=== PATIENT | male | born 1965 | race Caucasian/White ===

== ENCOUNTER → 2019-04-26 11:06 | Outpatient (BNVA) | payer MEDICARE, MEDICAID, SELFPAY | PROVIDERS: Family Provider Internal Medicine; PCP Internal Medicine; Visit Provider Specialist | DX: G43.711 Chronic migraine without aura, intractable, with status migrainosus (principal) | CPT/HCPCS: 64615; J0585 ==

== ENCOUNTER → 2019-05-10 11:45 | Outpatient (BNVA) | payer MEDICARE, MEDICAID, SELFPAY | PROVIDERS: Family Provider Internal Medicine; PCP Internal Medicine; Visit Provider Nurse Practitioner | DX: F31.81 Bipolar II disorder (principal) | CPT/HCPCS: 90832; 99213 ==

== ENCOUNTER → 2019-07-26 14:21 | Outpatient (BNVA) | payer MEDICARE, MEDICAID, SELFPAY | PROVIDERS: Family Provider Internal Medicine; PCP Internal Medicine; Visit Provider Specialist | DX: G43.711 Chronic migraine without aura, intractable, with status migrainosus (principal) | CPT/HCPCS: 64615; J0585 ==

== ENCOUNTER → 2019-10-01 07:35 | Outpatient (BNVA) | payer MEDICARE, MEDICAID, SELFPAY | PROVIDERS: Family Provider Internal Medicine; PCP Internal Medicine; Visit Provider Nurse Practitioner | DX: F31.81 Bipolar II disorder (principal) | CPT/HCPCS: 99214 ==

== ENCOUNTER → 2019-11-15 15:17 | Outpatient (BNVA) | payer MEDICARE, MEDICAID, SELFPAY | PROVIDERS: Family Provider Internal Medicine; PCP Internal Medicine; Visit Provider Nurse Practitioner | DX: F31.81 Bipolar II disorder (principal) | CPT/HCPCS: 99213 ==

== ENCOUNTER → 2019-12-28 14:45 | Outpatient (BNVA) | payer MEDICARE, MEDICAID, SELFPAY | PROVIDERS: Family Provider Internal Medicine; PCP Internal Medicine; Visit Provider Nurse Practitioner | DX: F31.81 Bipolar II disorder (principal) | CPT/HCPCS: 99214 ==

== ENCOUNTER → 2020-02-08 14:57 | Outpatient (BNVA) | payer MEDICARE, MEDICAID, SELFPAY | PROVIDERS: Family Provider Internal Medicine; PCP Internal Medicine; Visit Provider Nurse Practitioner | DX: F31.81 Bipolar II disorder (principal) | CPT/HCPCS: 99214 ==

== ENCOUNTER → 2020-04-17 13:00 | Outpatient (BNVA) | payer MEDICARE, MEDICAID, SELFPAY | PROVIDERS: Family Provider Internal Medicine; PCP Internal Medicine; Visit Provider Nurse Practitioner Psychiatric/Mental Health | DX: F31.81 Bipolar II disorder (principal); Z51.81 Encounter for therapeutic drug level monitoring; Z79.899 Other long term (current) drug therapy | CPT/HCPCS: 80053; 80178; 99214 ==

== ENCOUNTER → 2020-07-07 15:14 | Outpatient (BNVA) | payer MEDICARE, MEDICAID, SELFPAY | PROVIDERS: Family Provider Internal Medicine; PCP Internal Medicine; Visit Provider Nurse Practitioner Psychiatric/Mental Health | DX: F31.81 Bipolar II disorder (principal) | CPT/HCPCS: 99213 ==

== ENCOUNTER → 2020-07-23 14:05 | Outpatient (BNVA) | payer MEDICARE, MEDICAID, SELFPAY | PROVIDERS: Family Provider Internal Medicine; PCP Internal Medicine; Visit Provider Specialist | DX: G25.0 Essential tremor (principal); G43.019 Migraine without aura, intractable, without status migrainosus; F31.81 Bipolar II disorder; R63.4 Abnormal weight loss; Z68.23 Body mass index [BMI] 23.0-23.9, adult; F17.220 Nicotine dependence, chewing tobacco, uncomplicated | CPT/HCPCS: 99214 ==

== ENCOUNTER → 2020-10-06 15:52 | Outpatient (BNVA) | payer MEDICARE, MEDICAID, SELFPAY | PROVIDERS: Family Provider Internal Medicine; PCP Internal Medicine; Visit Provider Nurse Practitioner Psychiatric/Mental Health | DX: F31.81 Bipolar II disorder (principal) | CPT/HCPCS: 99213 ==

== ENCOUNTER → 2021-01-01 12:48 | Outpatient (BNVA) | payer MEDICARE, MEDICAID, SELFPAY | PROVIDERS: Family Provider Internal Medicine; PCP Internal Medicine; Visit Provider Nurse Practitioner Psychiatric/Mental Health | DX: F31.81 Bipolar II disorder (principal) | CPT/HCPCS: 99213 ==

== ENCOUNTER → 2021-01-21 14:54 | Outpatient (BNVA) | payer MEDICARE, MEDICAID, SELFPAY | PROVIDERS: Family Provider Internal Medicine; PCP Internal Medicine; Visit Provider Specialist | DX: G25.0 Essential tremor (principal); G43.711 Chronic migraine without aura, intractable, with status migrainosus; F31.81 Bipolar II disorder; R63.4 Abnormal weight loss; Z68.25 Body mass index [BMI] 25.0-25.9, adult | CPT/HCPCS: 99214 ==

== ENCOUNTER → 2021-03-03 09:27 | Outpatient (BNVA) | payer MEDICARE, MEDICAID, SELFPAY | PROVIDERS: Family Provider Internal Medicine; PCP Internal Medicine; Visit Provider Urology | DX: N40.1 Benign prostatic hyperplasia with lower urinary tract symptoms (principal); N13.8 Other obstructive and reflux uropathy; Z12.5 Encounter for screening for malignant neoplasm of prostate | CPT/HCPCS: G0103 ==

== ENCOUNTER → 2021-04-09 15:03 | Outpatient (BNVA) | payer MEDICARE, MEDICAID, SELFPAY | PROVIDERS: Family Provider Internal Medicine; PCP Internal Medicine; Visit Provider Nurse Practitioner Psychiatric/Mental Health | DX: F31.81 Bipolar II disorder (principal) | CPT/HCPCS: 99213 ==

== ENCOUNTER → 2021-07-02 13:01 | Outpatient (BNVA) | payer MEDICARE, MEDICAID, SELFPAY | PROVIDERS: Family Provider Internal Medicine; PCP Internal Medicine; Visit Provider Urology | DX: N40.1 Benign prostatic hyperplasia with lower urinary tract symptoms (principal); N13.8 Other obstructive and reflux uropathy; N52.9 Male erectile dysfunction, unspecified | CPT/HCPCS: 81003 ==

== ENCOUNTER → 2021-07-09 14:10 | Outpatient (BNVA) | payer MEDICARE, MEDICAID, SELFPAY | PROVIDERS: Family Provider Internal Medicine; PCP Internal Medicine; Visit Provider Nurse Practitioner Psychiatric/Mental Health | DX: F31.81 Bipolar II disorder (principal); F41.9 Anxiety disorder, unspecified | CPT/HCPCS: 99213 ==

== ENCOUNTER 2022-03-04 09:24 | Outpatient (CLI) | payer MEDICARE, MEDICAID, SELFPAY | END 2022-03-04 09:25 | disposition home or self-care (01) | LOC: SLEEP 03-05 09:31 | PROVIDERS: Family Provider Internal Medicine; PCP Internal Medicine; Visit Provider Internal Medicine | DX: G47.33 Obstructive sleep apnea (adult) (pediatric) (principal) | CPT/HCPCS: G0399 ==

== ENCOUNTER → 2022-07-01 13:18 | Outpatient (BNVA) | payer MEDICARE, MEDICAID, SELFPAY | PROVIDERS: Family Provider Internal Medicine; PCP Internal Medicine; Visit Provider Urology | DX: N40.1 Benign prostatic hyperplasia with lower urinary tract symptoms (principal); N13.8 Other obstructive and reflux uropathy; N52.9 Male erectile dysfunction, unspecified; R35.89 Other polyuria | CPT/HCPCS: 51798; 99213 ==

== ENCOUNTER 2022-07-30 10:10 | Outpatient (CLI) | payer MEDICARE, MEDICAID, SELFPAY ==
[2022-07-30 10:45] LABS: Basophils # 0.1 10^3/uL (0.0-0.1); Basophils % 1.4 %; Eosinophils # 0.3 10^3/uL (0.0-0.8); Eosinophils % 3.4 %; Hematocrit 42.5 % (42.0-52.0); Lymphocytes # 1.7 10^3/uL (0.8-4.8); Lymphocytes % 23.5 %; Mean Corpuscular HGB Conc 32.9 g/dL (30.0-36.0); Mean Corpuscular Volume 88.2 fl (80-94); Mean Platelet Volume 9.6 fL (7.4-10.4); Monocytes # 0.7 10^3/uL (0.2-0.9); Monocytes % 10.2 %; Neutrophils # 4.44 10^3/uL (1.8-7.7); Neutrophils % 61.1 %; Nucleated Red Blood Cells % 0 %; Platelet Count 286 10^3/cmm (130-400); Red Blood Count 4.82 10^6/uL (4.1-5.3); White Blood Count 7.3 10^3/uL (4.0-10.0)
[2022-07-30 11:12] LABS: Anion Gap 15.2 (5-19); Blood Urea Nitrogen 10 mg/dL (6-20); Calcium 9.5 mg/dL (8.5-10.5); Carbon Dioxide 27 mmol/L (22-29); Chloride 106 mmol/L (98-107); Glomerular Filtration Rate 87.3 mL/min (90-130); Glucose 110 mg/dL (65-115); Osmolality Calculated 298 mOsm/kg (285-295); Potassium 4.2 mmol/L (3.5-5.1); Sodium 144 mmol/L (136-145)
--- NOTE | 2022-07-30 11:12 | ECG_ITS ---
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 Measurements Intervals [place] Rate: 74 P: 51 SC: 167 QRS: -8 QRSD: 97 T: 46 QT: 368 QTc: 409 Interpretive Statements SINUS RHYTHM INFERIOR MYOCARDIAL INFARCTION , PROBABLY OLD [40+ ms Q WAVE AND/OR ST/T ABNORMALITY IN II/aVF] No previous ECG available for comparison Electronically Signed On 07-30-2022 13:27:19 CDT by Fabio Rausch M.D. [id number] f
== END 2022-07-30 10:11 | disposition home or self-care (01) ==
PROVIDERS: Family Provider Internal Medicine; PCP Internal Medicine; Visit Provider Specialist
DX: G47.33 Obstructive sleep apnea (adult) (pediatric) (principal)
CPT/HCPCS: 36415; 80048; 85025; 93005

== ENCOUNTER → 2023-03-07 14:26 | Outpatient (BNVA) | payer MEDICARE, MEDICAID, OTHER, SELFPAY | PROVIDERS: Family Provider Internal Medicine; PCP Internal Medicine; Visit Provider Nurse Practitioner Psychiatric/Mental Health | DX: Z79.899 Other long term (current) drug therapy (principal) | CPT/HCPCS: 80306 ==

== ENCOUNTER 2023-04-20 09:45 | Outpatient (CLI) | payer MEDICARE, MEDICAID, SELFPAY ==
[2023-04-20 10:17] LABS: Basophils # 0.1 10^3/uL (0.0-0.1); Basophils % 1.5 %; Eosinophils # 0.3 10^3/uL (0.0-0.8); Eosinophils % 4.2 %; Hematocrit 44.4 % (37-53); Lymphocytes # 1.8 10^3/uL (0.8-4.8); Lymphocytes % 24.7 %; Mean Corpuscular HGB Conc 33.8 g/dL (30-55); Mean Corpuscular Hemoglobin 29.9 pg (27-33); Mean Corpuscular Volume 88.6 fl (82-101); Mean Platelet Volume 9.4 fL (7.4-10.4); Monocytes # 0.6 10^3/uL (0.2-0.9); Monocytes % 8.3 %; Neutrophils # 4.52 10^3/uL (1.8-7.7); Neutrophils % 60.8 %; Nucleated Red Blood Cells % 0 %; Platelet Count 346 10^3/cmm (157-399); Red Blood Count 5.01 10^6/uL (3.85-5.65); Red Cell Distribution Width 12.5 % (12.1-15.1); White Blood Count 7.44 10^3/uL (3.29-11.43)
[2023-04-20 10:33] LABS: Anion Gap 13.9 (5-19); Blood Urea Nitrogen 8 mg/dL (6-20); Calcium 9.8 mg/dL (8.5-10.5); Carbon Dioxide 26 mmol/L (22-29); Chloride 105 mmol/L (98-107); Glomerular Filtration Rate 99.6 mL/min (90-130); Glucose 99 mg/dL (65-115); Osmolality Calculated 290 mOsm/kg (285-295); Potassium 3.9 mmol/L (3.5-5.1); Sodium 141 mmol/L (136-145)
== END 2023-04-20 09:46 | disposition home or self-care (01) ==
LOC: LAB 09:48
PROVIDERS: Family Provider Internal Medicine; PCP Internal Medicine; Visit Provider Specialist
DX: Z01.818 Encounter for other preprocedural examination (principal)
CPT/HCPCS: 36415; 80048; 85025; 93005

== ENCOUNTER → 2023-06-09 10:06 | Outpatient (BNVA) | payer MEDICARE, MEDICAID, SELFPAY | PROVIDERS: Family Provider Internal Medicine; PCP Internal Medicine; Referring Provider Internal Medicine; Visit Provider Surgery | DX: R19.5 Other fecal abnormalities | CPT/HCPCS: 99204 ==

== ENCOUNTER 2023-07-20 08:42 | Day surgery (SDC) | payer MEDICARE, MEDICAID, SELFPAY ==
[2023-07-20 09:00] VITALS: BP 126/79; PULSE 70; RESP 16; TEMP 36.1; O2SAT 100; BMI 26.9
[2023-07-20] MEDS: sodium chloride 0.9% 1,000 ML 30 ML IV (09:05)
--- NOTE | 2023-07-20 09:24 | ANES.PREANE2 ---
Pre-Anesthetic Assessment Height/Weight: Height 1.85 m Weight 92.533 kg Temp Pulse Resp BP Pulse Ox O2 Del Method 97 F L 70 16 126/79 100 Room Air 07/20/23 09:00 07/20/23 09:00 07/20/23 09:00 07/20/23 09:00 07/20/23 09:00 07/20/23 09:00 Preop Diagnosis: Screening Operation Date: 07/20/23 09:45 Proposed Procedures p Colonoscopy(Not Applicable) - Seven Colón DO Familial anesthetic complications: None Was Beta Govind taken within 24 hours: Yes Was Clonidine taken within 24 hours: N/A Last intake: Intake Last Liquid Date 07/19/23 Last Liquid Time 23:30 Last Solid Date 07/18/23 Last Solid Time 18:30 Social Tobacco (Chewing tobacco) and No alcohol Exam alert, oriented x 3, clear to auscultation bilaterally and regular rate & rhythm Airway Submandibular: within normal limits Cervical ROM: within normal limits Mallampati: Class II Dentition: false History/ROS No significant history except as noted and No significant complaints Pulmonary Sleep Apnea (Inspire implant) CV/HEM Hypertension BPH Hepatic None reported GI Gastroesophageal Reflux Disease (Well controlled with meds) Metabolic Hyperlipidemia Musc/skel Lower Back Pain and Osteoarthritis/DJD Neuropsych Anxiety, Depression, Headache (Chronic migraine) and Neuropathy Bipolar II disorder, essential tremor Anesthetic Plan ASA status: 3 Anesthesia: Anesthesia Evaluation, General and MAC Risk of > 500 ml blood loss (7ml/kg in children): No Medications/Allergies Home Medications Medication Instructions Recorded Confirmed Last Taken Type hydrocodone 10 mg-acetaminophen 1 tab PO Q6H PRN Pain 04/26/19 07/20/23 07/20/23 History 325 mg tablet ([place]) acetaminophen-caffeine 500 mg-65 1 tab PO Q4H PRN Migraine Headache 07/07/20 07/20/23 07/18/23 History mg tablet (Excedrin Tension Headache) atorvastatin 10 mg tablet 10 mg PO .QHS 07/07/20 07/20/23 07/19/23 History cyclobenzaprine 10 mg tablet 10 mg PO QID PRN MUSCLE SPASMS 07/07/20 07/20/23 07/18/23 History tamsulosin 0.4 mg capsule (Flomax) 0.4 mg PO BID 04/03/1707/20/23 07/20/23 History sildenafil 100 mg tablet 100 mg PO DAILY PRN sexual 03/03/21 07/18/23 Unknown Rx activity #30 tabs amlodipine 5 mg tablet 5 mg PO BID 07/02/21 07/20/23 07/20/23 History cholecalciferol (vitamin D3) 10 10 mcg PO DAILY 07/02/21 07/20/23 07/20/23 History mcg (400 unit) capsule magnesium 200 mg tablet 400 mg PO DAILY 07/02/21 07/20/23 07/20/23 History potassium gluconate 595 mg (99 mg) 595 mg PO DAILY 07/02/21 07/20/23 07/20/23 History tablet prazosin 2 mg capsule 2 mg PO BID 07/02/21 07/20/23 07/20/23 History vitamin B complex (B 1 tab PO DAILY 07/02/21 07/20/23 07/20/23 History Complex-Vitamin B12 tablet) docusate sodium 50 mg capsule 100 mg PO BID 07/09/21 07/20/23 07/20/23 History venlafaxine 150 mg 300 mg PO DAILY 01/19/22 07/20/23 07/19/23 History capsule,extended release 24 hr (Effexor XR) aripiprazole 5 mg tablet 10 mg PO DAILY 06/06/23 07/20/23 07/19/23 History alprazolam 0.5 mg tablet 0.5 mg PO BID PRN anxiety #30 tabs 06/13/23 07/20/23 07/19/23 Rx primidone 50 mg tablet 50 mg PO BID 07/18/23 07/20/23 07/20/23 History desvenlafaxine succinate 25 mg mg PO 07/20/23 Unknown History tablet,extended release 24 hr meloxicam 7.5 mg tablet mg 07/20/23 Unknown History propranolol 80 mg capsule,24 mg PO 07/20/23 Unknown History hr,extended release Allergies Allergy/AdvReac Type Severity Reaction Status Date / Time amitriptyline Allergy Severe aggressive Verified 07/18/23 10:48 and confrontational clonazepam [From Klonopin] Allergy Mild unknown Verified 07/18/23 10:48 prazosin Allergy unknown Verified 07/18/23 10:48 Current Medications Generic Name Dose Route Start Last Admin Trade Name Freq PRN Reason Stop Dose Admin Sodium Chloride 1,000 mls @ 30 mls/hr 07/20/23 09:00 07/20/23 09:05 Sodium Chloride 0.9% IV 07/21/23 08:59 30 mls/hr .Q24H PORTER Administration PFSH Anesthesia Medical History Polyuria Anxiety Tremor BPH with obstruction/lower urinary tract symptoms Psychiatric care Bipolar II disorder Family History Father , IN HIS 70'S Diabetes CAD (coronary artery disease) Mother , IN HER 70'S CAD (coronary artery disease) Other Cancer Social History Smoking and tobacco/nicotine status: former use of tobacco/nicotine Quit status (tobacco/nicotine): not considering quitting Second hand smoke exposure: No Alcohol intake: never Marital status: Life Partner Data Anesthesia Cardiac Studies: No Data to Display
--- NOTE | 2023-07-20 10:13 | PM.HP ---
Providers/Chief Complaint Primary Care Provider: Felicita Guzman MD Chief Complaint: R19.5, Z12.11 History of Present Illness Rl Craig is a 57 year old male Review of Systems General: Reports: 10 or more systems reviewed and unremarkable except in HPI and below Medications/Allergies Home Medications Medication Instructions Recorded Confirmed Last Taken Type hydrocodone 10 mg-acetaminophen 1 tab PO Q6H PRN Pain 04/26/19 07/20/23 07/20/23 History 325 mg tablet ([place]) acetaminophen-caffeine 500 mg-65 1 tab PO Q4H PRN Migraine Headache 07/07/20 07/20/23 07/18/23 History mg tablet (Excedrin Tension Headache) atorvastatin 10 mg tablet 10 mg PO .QHS 07/07/20 07/20/23 07/19/23 History cyclobenzaprine 10 mg tablet 10 mg PO QID PRN MUSCLE SPASMS 07/07/20 07/20/23 07/18/23 History tamsulosin 0.4 mg capsule (Flomax) 0.4 mg PO BID 07/07/20 07/20/23 07/20/23 History sildenafil 100 mg tablet 100 mg PO DAILY PRN sexual 03/03/21 07/18/23 Unknown Rx activity #30 tabs amlodipine 5 mg tablet 5 mg PO BID 07/02/21 07/20/23 07/20/23 History cholecalciferol (vitamin D3) 10 10 mcg PO DAILY 07/02/21 07/20/23 07/20/23 History mcg (400 unit) capsule magnesium 200 mg tablet 400 mg PO DAILY 07/02/21 07/20/23 07/20/23 History potassium gluconate 595 mg (99 mg) 595 mg PO DAILY 07/02/21 07/20/23 07/20/23 History tablet prazosin 2 mg capsule 2 mg PO BID 07/02/21 07/20/23 07/20/23 History vitamin B complex (B 1 tab PO DAILY 07/02/21 07/20/23 07/20/23 History Complex-Vitamin B12 tablet) docusate sodium 50 mg capsule 100 mg PO BID 07/09/21 07/20/23 07/20/23 History venlafaxine 150 mg 300 mg PO DAILY 01/19/22 07/20/23 07/19/23 History capsule,extended release 24 hr (Effexor XR) aripiprazole 5 mg tablet 10 mg PO DAILY 06/06/23 07/20/23 07/19/23 History alprazolam 0.5 mg tablet 0.5 mg PO BID PRN anxiety #30 tabs 06/13/23 07/20/23 07/19/23 Rx primidone 50 mg tablet 50 mg PO BID 07/18/23 07/20/23 07/20/23 History desvenlafaxine succinate 25 mg mg PO 07/20/23 Unknown History tablet,extended release 24 hr meloxicam 7.5 mg tablet mg 07/20/23 Unknown History propranolol 80 mg capsule,24 mg PO 07/20/23 Unknown History hr,extended release Allergies Allergy/AdvReac Type Severity Reaction Status Date / Time amitriptyline Allergy Severe aggressive Verified 07/18/23 10:48 and confrontational clonazepam [From Klonopin] Allergy Mild unknown Verified 07/18/23 10:48 prazosin Allergy unknown Verified 07/18/23 10:48 PFSH Acute PFSH: Medical History Polyuria Anxiety Tremor BPH with obstruction/lower urinary tract symptoms Psychiatric care Bipolar II disorder Family History Father , IN HIS 70'S Diabetes CAD (coronary artery disease) Mother , IN HER 70'S CAD (coronary artery disease) Other Cancer Social History Smoking and tobacco/nicotine status: former use of tobacco/nicotine Quit status (tobacco/nicotine): not considering quitting Second hand smoke exposure: No Alcohol intake: never Marital status: Life Partner Vitals/I&O/Wt Last Vital Signs Temp 97 F L 07/20/23 09:00 Pulse 70 07/20/23 09:00 Resp 16 07/20/23 09:00 BP 126/79 07/20/23 09:00 Pulse Ox 100 07/20/23 09:00 O2 Del Method Room Air 07/20/23 09:00 Weight last 48 hrs Weight 204 lb A&P Assessment and plan (1) Screen for colon cancer: Plan Colonoscopy Attestations Medical Necessity Statement*: Home Coding Level of Care Code Acute Code for Chg Fwd Diagnoses Screen for colon cancer Z12.11
[2023-07-20 10:40] VITALS: BP 100/61; PULSE 69; RESP 12; TEMP 36.2; O2SAT 96
[2023-07-20 10:53] VITALS: BP 78/54; PULSE 63; RESP 16; O2SAT 95
[2023-07-20 10:58] VITALS: BP 98/59; PULSE 61; RESP 16; O2SAT 97
[2023-07-20 11:21] VITALS: BP 110/75; PULSE 63; RESP 16; O2SAT 96
--- NOTE | 2023-07-20 11:34 | PC.NURSE ---
NS FLUIDS INFUSED VIA GRAVITY PER ANESTHESIA AFTER BP OF 78/54, PT BP NOW 110/75. PT ASYMPTOMATIC.
--- NOTE | 2023-07-20 11:35 | ANE.PACU2 ---
Inpatient post-anesthesia follow up: Airway intact: Yes Vital signs: Temperature 97.2 F Pulse Rate 63 Respiratory Rate 16 Blood Pressure 110/75 Pulse Oximetry 96 Oxygen Delivery Me thod Room Air Oxygen Flow Rate Fraction of Inspir ed Oxygen Hydration adequate: Yes Nausea and vomiting: No Pain level: 1 Mental status: Baseline
== END 2023-07-20 11:36 | disposition home or self-care (01) ==
PROVIDERS: Family Provider Internal Medicine; PCP Internal Medicine; Visit Provider Surgery
PROC: 0DJD8ZZ Inspection of Lower Intestinal Tract, Via Natural or Artificial Opening Endoscopic (ICD-10-PCS; CPT 45378; principal; 2023-07-20 09:45)
DX: Z12.11 Encounter for screening for malignant neoplasm of colon (principal); D12.3 Benign neoplasm of transverse colon; F17.220 Nicotine dependence, chewing tobacco, uncomplicated; G47.30 Sleep apnea, unspecified; I10 Essential (primary) hypertension; N40.0 Benign prostatic hyperplasia without lower urinary tract symptoms; E78.5 Hyperlipidemia, unspecified; N40.1 Benign prostatic hyperplasia with lower urinary tract symptoms; N13.8 Other obstructive and reflux uropathy
CPT/HCPCS: 45385; 88305; J2704; J7030

== ENCOUNTER → 2023-08-04 15:24 | Outpatient (BNVA) | payer MEDICARE, MEDICAID, SELFPAY | PROVIDERS: Family Provider Internal Medicine; PCP Internal Medicine; Visit Provider Surgery | DX: Z09 Encounter for follow-up examination after completed treatment for conditions other than malignant neoplasm (principal); D37.4 Neoplasm of uncertain behavior of colon | CPT/HCPCS: 99214 ==

== ENCOUNTER 2024-11-21 16:12 | Outpatient (CLI) | payer MEDICARE, MEDICAID, SELFPAY ==
--- NOTE | 2024-11-21 07:36 | XR_ITS ---
Exam: XR cervical spine min 6V [id number] Date/Time of Exam: 11/21/2024 4:32 PM Reason For Exam: CERVICAL SPONDYLOSIS DLP: No acute fracture. Slight disc narrowing with spondylosis at C5-6. Normal paraspinal soft tissues. Mild facet DJD at all levels. Neurostimulator lead extends along the RIGHT mandible. The dens is intact. The bony neural foramina are patent bilaterally. No significant flexion or extension instability seen. IMPRESSION: 1. No fracture or malalignment. No instability. 2. Mild degenerative changes at the C5-6 level as noted above. MTDD
--- NOTE | 2024-11-21 16:23 | XR_ITS ---
WS: [id number] Exam: XR lumbar spine 6V w f/e [id number] Date/Time of Exam: 11/21/2024 4:32 PM Reason For Exam: LUMBOSACRAL SPONDYLOSIS DLP: Comparison 03/30/2010. Degenerative vacuum disc at L4-5 with posterior osteophytes projecting from the lower endplate of L4. Moderate disc narrowing also noted at L1-2. There is spondylosis. Facet DJD at L4-5 and L5-S1. No flexion or extension instability. Quite large amount of stool retained in the colon particularly the rectosigmoid bowel. XR/XR lumbar spine 6V w f/e [id number] IMPRESSION: 1. Degenerative changes of the lower lumbar spine as noted. No fracture or nisha lignment. No instability. 2. Constipation.
== END 2024-11-21 16:13 | disposition home or self-care (01) ==
LOC: RAD 16:17
PROVIDERS: Family Provider Internal Medicine; PCP Internal Medicine; Visit Provider Student in an Organized Health Care Education/Training Program
DX: M47.817 Spondylosis without myelopathy or radiculopathy, lumbosacral region (principal); M47.812 Spondylosis without myelopathy or radiculopathy, cervical region; M51.369 Other intervertebral disc degeneration, lumbar region without mention of lumbar back pain or lower extremity pain; K59.00 Constipation, unspecified; M50.322 Other cervical disc degeneration at C5-C6 level
CPT/HCPCS: 72052; 72114